=== PATIENT | male | born 1985 | race Caucasian/White ===

== ENCOUNTER → 2020-10-29 09:06 | Outpatient (REF) | payer OTHER, SELFPAY ==
--- NOTE | 2020-10-29 09:09 | CA_ITS ---
Acquisition Time: 2020-10-29 10:28:49 Total Exercise Time: 00:10:37 Test Indications: Suspected Angina Medications: NONE Protocol: TATI Max HR: 176 BPM 95% of Pred: 185 BPM Max BP: 140/078 mmHG Max Work Load: 12.8 METS Exercise stress test using Tati protocol, total of 10 min 37 se. METS 12.8 and MHR up to 96%. Pt tolerated well, denies any anginal sx. EKG without any arrhythmias, no ischemic changes. Normotensive response to exercise. Test reviewed with Dr. Raza. Referred By: Alize Gonzalez Overread By: Yue Storey
== END ==
LOC: HO.CARD 09:06
PROVIDERS: PCP Internal Medicine; Visit Provider Internal Medicine
DX: I20.8 Other forms of angina pectoris (principal)
CPT/HCPCS: 93017

== ENCOUNTER 2024-05-23 08:25 | Outpatient (AMB) | payer BC, SELFPAY ==
[2024-05-23 08:36] VITALS: BP 120/80; BMI 31.8
--- NOTE | 2024-05-23 08:36 | MHC.PC.OV ---
Vital Signs 05/23/24 08:36 Height 5 ft 8 in Weight 209 lb BMI 31.8 BP 120/80 Blood Pressure Location Lt brachial Position Sitting Intake Visit Reasons: pe Intake Note: Patient here for a physical exam Real [employer] Closer Required: No Accompanied by: Self / Same As Patient Allergies No Known Allergies Allergy (Verified 05/23/24 08:49) Medication List - Last Reconciled 05/23/24 by Alize Gonzalez MD No Known Home Meds Tobacco use date assessed: 05/23/24 Dental Screening Dental Screen Date: 05/23/24 Did you have a dental visit in the last 12 months?: Yes Did you have a dental problem in the last 6 months where you did not have access to dental care?: No Was dental information given to patient?: Patient has dentist HPI HPI Comments History of Present Illness Details This is a 38-year-old male that comes for his physical exam. Father had colon cancer at 49 years old therefore he will have a colonoscopy next year. No chest pain or shortness on breath. Complains of left knee pain that started few months ago aggravated by activity. Has full active range of motion. [facility] Medical History (Updated 05/23/24 @ 09:01 by Alize Gonzalez MD) Anxiety Angina at rest Obesity Surgical History No pertinent past surgical history Family History (Updated 05/23/24 @ 08:52 by Alize Gonzalez MD) Father Cancer, Onset Age: 49 Mother Hypertension Diabetes Family/Other FH: mental illness Social History Housing: Apartment Alcohol intake: current Alcohol intake frequency: a few times a month Alcohol type: beer Patient Tobacco Use Status: Former Tobacco user Tobacco use type: Cigarette e-Cigarette/Vaping Use: Never Used Second Hand Smoke Exposure: No service: No Current occupational status: employed Current occupational exposures/hazards: No Cognitive needs: No Hearing needs: No Vision needs: No Questionnaire PHQ-9 Over the last 2 weeks, how often have you been bothered by any of the following problems? 1. Little interest or pleasure in doing things: not at all 2. Feeling down, depressed, or hopeless: not at all 3. Trouble falling or staying asleep, or sleeping too much: not at all 4. Feeling tired or having little energy: not at all 5. Poor appetite or overeating: not at all 6. Feeling bad about yourself - or that you are a failure or have let yourself or your family down: not at all 7. Trouble concentrating on things, such as reading the newspaper or watching television: not at all 8. Moving or speaking so slowly that other people could have noticed. Or the opposite - being so fidgety or restless that you have been moving around a lot more than usual: not at all 9. Thoughts that you would be better off or of hurting yourself in some way: not at all Total score: 0 Depression Screening Interpretation: Negative Depression Screening Done: Yes 57366 - PHQ-9 Billing: Yes Source: Developed by Drs. Troy Munoz, Laura Damon, Supa Vu and colleagues, with an educational kiki from [employer]. Thrive Questionnaire Date Thrive assessed: 05/23/24 I am a: Patient What is your living situation today?: I have a steady place to live Within the past 12 months, did the food you bought not last and you didn't have the money to get more?: Never true Within the past 12 months, did you worry whether your food would run out before you got money to buy more?: Never true Do you have trouble paying for medicines?: No Do you have trouble getting transportation to medical appointments?: No Do you have trouble paying your heating and electricity bill?: No Do you have trouble taking care of your child, family member or friend?: No Do you have trouble with day-to-day activities such as bathing, preparing meals, shopping, managing finances, etc.?: No Are you currently unemployed and looking for a job?: No Are you interested in more education?: No Please select the resources that you would like help with: None Currently or been in a relationship where the following occur: no concerns reported THRIVE Score: 0 AUDIT C Alcohol Use Questionnaire (AUDIT-C) 1. How often do you have a drink containing alcohol?: Monthly or less 2. How many drinks containing alcohol do you have on a typical day when you are drinking?: 1 or 2 3. How often do you have six or more drinks on one occasion?: Never Total Score: 1 Score Reviewed/Action Taken: No COCO-7 AMB Questionnaire COCO-7 Date COCO - 7 assessed: 05/23/24 Feeling nervous, anxious, or on edge: 0 = Not at all Not being able to stop or control worryin = Not at all Worrying too much about different things: 0 = Not at all Trouble relaxin = Not at all Being so restless that it is hard to sit still: 0 = Not at all Becoming easily annoyed or irritable: 0 = Not at all Feeling afraid as if something awful might happen: 0 = Not at all Total COCO-7 score (0-4 normal; 5-9 mild; 10-14 moderate; 15-21 severe): 0 Source: Developed by Drs. Troy Munoz, Laura Damon, Supa Vu and colleagues, with an educational kiki from [employer]. COCO-7 Assessment Billing COCO-7 Assessment Tool: COCO-7 Assessment 67773 Review of Systems Const All systems reviewed & are unremarkable except as noted in HPI and below Card Denies chest pain at rest, Denies chest pain with activity, Denies edema, Denies irregular heart rhythm, Denies claudication, Denies dyspnea, Denies dyspnea on exertion, Denies orthopnea, Denies paroxysmal nocturnal dyspnea and Denies slow heart rate Resp Denies cough, Denies dyspnea and Denies dyspnea on exertion GI Denies abdominal pain, Denies change in bowel habits, Denies excessive flatus, Denies nausea and Denies vomiting Denies urinary hesitancy, Denies urinary incontinence and Denies urinary urgency Musc Denies atrophy, Denies deformity, Reports arthralgias and Denies limited range of motion Physical exam (Primary Care) Vital Signs: Last Vital Signs BP 120/80 05/23/24 08:36 BMI result Body Mass Index 31.8 BMI Assessment/Plan discussion: High BMI High, discussed plan: lifestyle, weight reduction, dietary and physical activity Tobacco/Smoking Status: Tobacco use Status Tobacco use date assessed 05/23/24 05/23/24 08:43 Patient Tobacco Use Status Former Tobacco user 05/23/24 08:43 Tobacco use type Cigarette 05/23/24 08:43 e-Cigarette/Vaping Use Never Used 06/24/24 08:43 PHQ-9: PHQ-9 Score PHQ-9: Total score 0 05/23/24 08:43 Depression Screening Interpretation: Negative Thrive Assessment: Date of Thrive Assessment Date Thrive assessed 05/23/24 05/23/24 08:43 Currently or been in a relationship where the following occur: no concerns reported [facility] Head: Yes normal to inspection, Yes normocephalic and Yes atraumatic Ears: external ears normal Eyes General: appearance normal, both eyes and all related structures Eyelids: Yes eyelids normal Conjunctivae: conjunctivae normal Neck Neck: Yes normal visual inspection and Yes supple Resp Effort & Inspection: normal respiratory effort Auscultation: clear to auscultation bilaterally Cardio Jugular venous distension: no JVD Rate: regular rate Rhythm: regular rhythm Heart sounds: S1 normal heart sound present and S2 normal heart sound present GI Inspection: Yes normal to inspection Palpation (GI): Soft to palpation and nontender Auscultation: normal bowel sounds Skin General skin exam: no rashes or lesions noted Neuro General: no focal motor deficits Extrem General: Yes full ROM Psych Appearance: grossly normal Assessment and Plan Assessment & Plan (1) Physical exam: Code(s): Z00.00 - Encounter for general adult medical examination without abnormal findings Plan: Repeat in a year. (2) Left knee pain: Code(s): M25.562 - Pain in left knee Qualifiers: Chronicity: chronic Qualified Code(s): M25.562 - Pain in left knee; G89.29 - Other chronic pain Plan: X-ray ordered. Referred to Ortho. Orders: Orders Comprehensive [place]. Panel Fast Today Z00.00 - Encounter for general adult medical examination without abnormal findings Lipid Panel Today Z00.00 - Encounter for general adult medical examination without abnormal findings XR knee LT 2V Today M25.562 - Pain in left knee Referrals Orthopedics Referral M25.562 - Pain in left knee Coding Level of Care Code Est Pt Level 3 (72682) Est Pt Prev Care 18-39y(23139) Diagnoses Physical exam Z00.00 Chronic pain of left knee M25.562; G89.29 Chronicity: chronic Additional Codes COCO-7 Assessment Billing - COCO-7 Assessment Tool: COCO-7 Assessment 48359 ([id number]) Time Spent (min) 33
== END 2024-05-23 09:00 | disposition home or self-care (01) ==
PROVIDERS: PCP Internal Medicine; Visit Provider Internal Medicine
DX: Z00.00 Encounter for general adult medical examination without abnormal findings (principal); M25.562 Pain in left knee; G89.29 Other chronic pain
CPT/HCPCS: 99213; 99395

== ENCOUNTER 2024-05-23 09:04 | Outpatient (REF) | payer BC, SELFPAY ==
--- NOTE | ~2024-05-23 | XR_ITS ---
EXAMINATION: XR KNEE, LEFT CLINICAL INFORMATION: Reason for Exam M25.562 - Pain in left knee COMPARISON: None TECHNIQUE: 2 views of the knee FINDINGS: No acute fracture or dislocation. Mild degenerative changes of the knee with quadriceps tendon enthesopathy. Trace suprapatellar joint effusion. Soft tissues are unremarkable. XR/XR knee LT 2V IMPRESSION: * No acute osseous abnormality. * Mild degenerative changes of the knee. Trace suprapatellar joint effusion.
[2024-05-23 10:03] LABS: Alanine Aminotransferase 25 U/L (0-40); Albumin Level 4.4 g/dL (3.5-5.0); Alkaline Phosphatase 57 U/L (39-117); Anion Gap 14 (12-20); Aspartate Amino Transferase 20 U/L (5-37); Bilirubin Total 0.3 mg/dL (0.0-1.0); Blood Urea Nitrogen 13 mg/dL (9-16); Calcium 9.3 mg/dL (8.4-10.2); Carbon Dioxide 28 mmol/L (22-29); Chloride 104 mmol/L (96-108); Cholesterol 165 mg/dL (<200); Estimated Glomerular Filt Rate > 60; Glucose Fasting 97 mg/dL (60-99); HDL Cholesterol 57 mg/dL (>40); LDL Cholesterol Calculated 94 mg/dL (<100); Potassium 4.3 mmol/L (3.3-5.1); Sodium 142 mmol/L (135-145); Total Protein 7.3 g/dL (6.5-8.0); Triglycerides 72 mg/dL (<150)
== END 2024-05-23 09:05 | disposition home or self-care (01) ==
LOC: HO.XRAY 09:04
PROVIDERS: PCP Internal Medicine; Visit Provider Internal Medicine
DX: Z00.00 Encounter for general adult medical examination without abnormal findings (principal); M25.562 Pain in left knee
CPT/HCPCS: 36415; 73560; 80053; 80061

== ENCOUNTER 2025-05-29 08:37 | Outpatient (AMB) | payer BC, SELFPAY ==
--- NOTE | 2025-05-29 08:40 | MHC.PC.OV ---
Vital Signs 05/29/25 08:42 Height 5 ft 8 in Weight 213 lb BMI 32.4 BP 128/80 Blood Pressure Location Lt brachial Position Sitting Intake Visit Reasons: annual exam Intake Note: Patient here for a physical exam [place] Folder Required: No Accompanied by: Self / Same As Patient Allergies No Known Allergies Allergy (Verified 05/29/25 08:52) Medication List - Last Reconciled 05/29/25 by Alize Gonzalez MD No Known Home Meds Tobacco use date assessed: 05/29/25 Dental Screening Dental Screen Date: 05/29/25 Did you have a dental visit in the last 12 months?: Yes Did you have a dental problem in the last 6 months where you did not have access to dental care?: No Was dental information given to patient?: Patient has dentist HPI HPI Comments History of Present Illness Details The patient is a 39-year-old male presenting for an annual physical examination and preventative care. The patient reports experiencing gastritis, characterized by discomfort when not eating, which sometimes feels like a dull ache. He mentions that the symptoms are alleviated by medication, which he uses only when necessary, particularly when consuming stronger foods. The patient has a family history of diabetes and hypertension, as his mother is affected by these conditions. He has a history of smoking but has since quit and reports occasional alcohol consumption, particularly on weekends, where he drinks more than three to four beers. - Tetanus vaccination discussed and planned for administration - Referral to gastroenterology for further evaluation of gastritis, including potential endoscopy [facility] Medical History (Updated 05/29/25 @ 09:02 by Alize Gonzalez MD) Anxiety Angina at rest Obesity Surgical History No pertinent past surgical history Family History (Updated 05/29/25 @ 08:56 by Alize Gonzalez MD) Father Cancer, Onset Age: 45 Mother Hypertension Diabetes Family/Other FH: mental illness Social History Housing: Apartment Alcohol intake: current Alcohol intake frequency: a few times a month Alcohol type: beer Patient Tobacco Use Status: Former Tobacco user Tobacco use type: Cigarette e-Cigarette/Vaping Use: Never Used Second Hand Smoke Exposure: No service: No Current occupational status: employed Current occupational exposures/hazards: No Cognitive needs: No Hearing needs: No Vision needs: No Questionnaire PHQ-9 Over the last 2 weeks, how often have you been bothered by any of the following problems? 1. Little interest or pleasure in doing things: not at all 2. Feeling down, depressed, or hopeless: not at all 3. Trouble falling or staying asleep, or sleeping too much: not at all 4. Feeling tired or having little energy: several days 5. Poor appetite or overeating: several days 6. Feeling bad about yourself - or that you are a failure or have let yourself or your family down: not at all 7. Trouble concentrating on things, such as reading the newspaper or watching television: not at all 8. Moving or speaking so slowly that other people could have noticed. Or the opposite - being so fidgety or restless that you have been moving around a lot more than usual: not at all 9. Thoughts that you would be better off or of hurting yourself in some way: not at all Total score: 2 Depression Screening Interpretation: Negative Depression Screening Done: Yes 79170 - PHQ-9 Billing: Yes Source: Developed by Drs. Troy Munoz, Laura Damon, Supa Vu and colleagues, with an educational kiki from [employer]. Thrive Questionnaire Date Thrive assessed: 05/22/25 I am a: Patient What is your living situation today?: I have a steady place to live Within the past 12 months, did the food you bought not last and you didn't have the money to get more?: Often true Within the past 12 months, did you worry whether your food would run out before you got money to buy more?: Sometimes True Do you have trouble paying for medicines?: Yes Do you have trouble getting transportation to medical appointments?: No Do you have trouble paying your heating and electricity bill?: Yes Do you have trouble taking care of your child, family member or friend?: No Do you have trouble with day-to-day activities such as bathing, preparing meals, shopping, managing finances, etc.?: No Are you currently unemployed and looking for a job?: No Are you interested in more education?: Yes Please select the resources that you would like help with: None Currently or been in a relationship where the following occur: No concerns reported THRIVE Score: 3 AUDIT C Alcohol Use Questionnaire (AUDIT-C) 1. How often do you have a drink containing alcohol?: 2-4 times a month 2. How many drinks containing alcohol do you have on a typical day when you are drinking?: 3 or 4 3. How often do you have six or more drinks on one occasion?: Monthly Total Score: 5 Score Reviewed/Action Taken: Yes COCO-7 AMB Questionnaire COCO-7 Date COCO - 7 assessed: 05/29/25 Feeling nervous, anxious, or on edge: 0 = Not at all Not being able to stop or control worryin = Not at all Worrying too much about different things: 1 = Several days Trouble relaxin = Several days Being so restless that it is hard to sit still: 0 = Not at all Becoming easily annoyed or irritable: 1 = Several days Feeling afraid as if something awful might happen: 1 = Several days Total COCO-7 score (0-4 normal; 5-9 mild; 10-14 moderate; 15-21 severe): 4 Source: Developed by Drs. Troy Munoz, Laura Damon, Supa Vu and colleagues, with an educational kiki from [employer]. COCO-7 Assessment Billing COCO-7 Assessment Tool: COCO-7 Assessment 47103 Review of Systems Const All systems reviewed & are unremarkable except as noted in HPI and below Card Denies chest pain at rest, Denies chest pain with activity, Denies edema, Denies irregular heart rhythm, Denies claudication, Denies dyspnea, Denies dyspnea on exertion, Denies orthopnea, Denies paroxysmal nocturnal dyspnea and Denies slow heart rate Resp Denies cough, Denies dyspnea and Denies dyspnea on exertion GI Denies abdominal pain, Denies change in bowel habits, Denies excessive flatus, Denies nausea and Denies vomiting Denies urinary hesitancy, Denies urinary incontinence and Denies urinary urgency Musc Denies abnormal gait, Denies atrophy, Denies deformity and Denies limited range of motion Skin/Breast Denies bleeding lesions, Denies changing lesions and Denies rash Neuro Denies abnormal gait, Denies behavioral changes and Denies lack of coordination Psych Denies behavioral changes Physical exam (Primary Care) Vital Signs: Last Vital Signs BP 128/80 05/29/25 08:42 BMI result Body Mass Index 32.4 Tobacco/Smoking Status: Tobacco use Status Tobacco use date assessed 05/29/25 05/29/25 08:49 Patient Tobacco Use Status Former Tobacco user 05/29/25 08:47 Tobacco use type Cigarette 05/29/25 08:47 e-Cigarette/Vaping Use Never Used 05/29/25 08:47 PHQ-9: PHQ-9 Score PHQ-9: Total score 2 05/29/25 08:58 Depression Screening Interpretation: Negative Thrive Assessment: Date of Thrive Assessment Date Thrive assessed 05/22/25 05/29/25 08:47 Currently or been in a relationship where the following occur: No concerns reported [facility] Head: Yes normal to inspection, Yes normocephalic and Yes atraumatic Ears: external ears normal Eyes General: appearance normal, both eyes and all related structures Eyelids: Yes eyelids normal Conjunctivae: conjunctivae normal Neck Neck: Yes normal visual inspection and Yes supple Resp Effort & Inspection: normal respiratory effort Auscultation: clear to auscultation bilaterally Cardio Jugular venous distension: no JVD Rate: regular rate Rhythm: regular rhythm Heart sounds: S1 normal heart sound present and S2 normal heart sound present GI Inspection: Yes normal to inspection Palpation (GI): Soft to palpation and nontender Auscultation: normal bowel sounds Skin General skin exam: no rashes or lesions noted Neuro General: no focal motor deficits Extrem General: Yes full ROM Psych Appearance: grossly normal Immunizations Boostrix Tdap 2.5 Lf unit-8 mcg-5 Lf/0.5 mL intramuscular syringe Performing Provider: Alize Gonzalez MD [facility] [place] [facility] [place] [facility] Administered by: MARIO Garrison on 05/29/25 09:05 Dose Route Admin Location Dispensed Lot Number Expiration Date [facility] Rn Post Partum 0.5 mL IM Right Deltoid 0.5 mL [id number] 07/28/27 [id number] [employer] Total Dispensed Waste 0.5 mL 0 % VIS Given Date VIS Provided VIS Publication Date 05/29/25 Single Vaccine 24 Eligibility Eligibility Date Funding Source Not [facility] Eligible 05/29/25 Private Coding Level of Care Code Est Pt Level 3 (41474) Est Pt Prev Care 18-39y(43908) Diagnoses Physical exam Z00.00 Family history of colon cancer in father Z80.0 Chronic GERD K21.9 Additional Codes COCO-7 Assessment Billing - COCO-7 Assessment Tool: COCO-7 Assessment 90879 ([id number]) PHQ-9 - 26817 - PHQ-9 Billing: Yes ([id number]) Time Spent (min) 35 Assessment & Plan Assessment & Plan (1) Physical exam: Code(s): Z00.00 - Encounter for general adult medical examination without abnormal findings Category: Medical (2) Family history of colon cancer in father: Code(s): Z80.0 - Family history of malignant neoplasm of digestive organs Category: Medical (3) Chronic GERD: Code(s): K21.9 - Gastro-esophageal reflux disease without esophagitis Category: Medical Plan The patient will receive a tetanus vaccination as part of his preventative care measures during this visit. For the management of gastritis, the patient is advised to continue using medication as needed, particularly before consuming foods known to exacerbate symptoms. A referral to gastroenterology is planned for further evaluation, including the possibility of an endoscopy to assess the gastrointestinal tract more thoroughly. Patient was informed and verbally consented to the use of an ambient scribe for clinic note documentation during this visit. During the visit, I discussed with the patient the importance of receiving a tetanus vaccination, which is due as part of his preventative care. We also talked about his gastritis symptoms and the use of medication to manage these symptoms effectively. I recommended a referral to gastroenterology for further evaluation, including the potential need for an endoscopy to better understand his gastrointestinal issues. Orders: Orders Lipid Panel Today Z00.00 - Encounter for general adult medical examination without abnormal findings TDaP Immunization Today Z23 - Encounter for immunization Comprehensive [place]. Panel Fast Today Z00.00 - Encounter for general adult medical examination without abnormal findings Referrals Gastroenterology Referral K21.9 - Gastro-esophageal reflux disease without esophagitis, Z80.0 - Family history of malignant neoplasm of digestive organs Medications: New omeprazole 20 mg PO DAILY 90 caps 1RF 90 days K21.9 - Gastro-esophageal reflux disease without esophagitis Patient Instructions: - Receive tetanus vaccination today. - Use medication for gastritis as needed, especially before eating foods that may cause discomfort. - Follow up with gastroenterology for further evaluation and possible endoscopy.
[2025-05-29 08:42] VITALS: BP 128/80; BMI 32.4
--- OUTSIDE RECORDS SUMMARY | 2025-05-29 08:48 | XMS_ITS | Clinical Summary ---
Author Organization [facility] ity Address [address] [place] [address] Care Team Providers Care Photographer'S Model Name Role Phone Vika Suazo MD Primary Care Provider Surgical History Surgery Date Site/Laterality Comments OTHER SURGICAL HISTORY PROCEDURE: DENIES PREVIOUS SURGERY Medical History Medical History Date Comments Historical Medical DX 09/14/2014 DX:NO ACTI VE MEDICAL PROBLEMS Family History Medical History Relation Name Comments Colon cancer Father Hypertension Mother diabetic Breast cancer Paternal Grandmother Relation Name Status Comments Father Mother Paternal Grandmother Social History Tobacco Use Types Packs/Day Years Used Date Smoking Tobacco: Former Cigarettes Q uit: 06/30/2014 Smokeless Tobacco: Former Quit: 06/30/2014 Alcohol Use Standard Drinks/Week Comments Yes 0 (1 standard drink = 0.6 oz pur e alcohol) Sex and Gender Information Value Date Recorded Sex Assigned at Not on file Legal Sex Male 3:59 AM EST Gender Identity Not on file Sexual Orientation Not on file Obstetrics History Plan of Treatment Health Maintenance Due Date Last Done Comments DTaP,Tdap,and Td Vaccines (1 - Tdap) 2004 Hepatitis B Vaccines (1 of 3 - 19+ 3-dose series) 2004 COVID-19 Vaccine ( - 2023-2 5 season) 2024 Influenza Vaccine (Season Ended) 2025 09/14/20 14 HIB Vaccines Aged Out No longer eligi ble based on patient's age to complete this topic HPV Vaccines Aged Out No longer eligi ble based on patient's age to complete this topic Hepatitis A Vaccines Aged Out No long er eligible based on patient's age to complete this topic IPV Vaccines Aged Out No longer eligi ble based on patient's age to complete this topic MMR Vaccines Aged Out No longer eligi ble based on patient's age to complete this topic Meningococcal ACWY Vaccine Aged Out N o longer eligible based on patient's age to complete this topic Meningococcal B Vaccine Aged Out No l onger eligible based on patient's age to complete this topic Pneumococcal Vaccine: Pediat rics (0 to 5 Years) and At-Risk Patients (6 to 64 Years) Aged Out No longer eligi ble based on patient's age to complete this topic RSV Immunization Patients Un darren 20 months Aged Out No longer eligible b ased on patient's age to complete this topic Varicella Vaccines Aged Out No longer eligible based on patient's age to complete this topic Care Teams Photographer'S Model Relationship Specialty Start Date End Date Vika Suazo MD [address] [place] [id number] PCP - General Internal Medicine 08/15/16
== END 2025-05-29 09:03 | disposition home or self-care (01) ==
LOC: HO.HMCH 08:38
PROVIDERS: PCP Internal Medicine; Visit Provider Internal Medicine
DX: Z00.00 Encounter for general adult medical examination without abnormal findings (principal); K21.9 Gastro-esophageal reflux disease without esophagitis; Z80.0 Family history of malignant neoplasm of digestive organs; Z23 Encounter for immunization

== ENCOUNTER → 2025-05-29 08:37 | Outpatient (BNVA) | payer BC, SELFPAY | PROVIDERS: PCP Internal Medicine; Visit Provider Internal Medicine | DX: Z00.00 Encounter for general adult medical examination without abnormal findings (principal); K21.9 Gastro-esophageal reflux disease without esophagitis; E11.9 Type 2 diabetes mellitus without complications; I10 Essential (primary) hypertension; Z23 Encounter for immunization; Z80.0 Family history of malignant neoplasm of digestive organs | CPT/HCPCS: 90471; 90715; 96127 ==

== ENCOUNTER 2025-10-06 14:02 | Outpatient (AMB) | payer BC, SELFPAY ==
--- NOTE | 2025-10-06 14:07 | A.OFFVIS_ITS ---
Vital Signs 10/06/25 14:08 Height 5 ft 8 in Weight 213 lb BMI 32.4 BP 114/60 Blood Pressure Location Rt brachial Position Sitting Pulse 96 Pulse Source Pulse Oximeter Pulse Oximetry (%) 99 Oxygen Delivery Method Room Air Intake Visit Reasons: gerd, colo screen Intake Note: Patient new consult for pre Colonoscopy and GERD. Patient cc: C.O. GERD, excessive gas, and epigastric pain. Pt states that he had previously been given an Rx for PPI but never picked it up. Pt has not had anything to eat or drink since ~ 12 PM. Family hx of CRC (Father). Jigman Required: Yes Jigman Services: Jigman Offered & Declined Accompanied by: Significant Other Allergies No Known Allergies Allergy (Verified 10/06/25 14:08) Medication List - Last Reconciled 10/06/25 by Lisa Mejia CNP No Known Home Meds HPI HPI gerd, colo screen: Details: Patient is a 40-year-old male with PMH of obesity, anxiety. Referred by PCP for further evaluation GERD and family history of colon cancer. Patient is accompanied by partner who is translating during this visit. Reports first-degree relative (father) diagnosed with colon cancer at age 47. Patient endorses a 2?3 year history of sensation of food ?getting stuck? and occasional burning discomfort in the epigastric/esophageal region, primarily triggered by coffee, lasting up to 2 hours. Reports intermittent regurgitation and frequent burping, particularly after meals and when eating quickly. Additionally, notes difficulty swallowing, more pronounced with solids, present for approximately one year, and exacerbated by specific foods such as cheese (notably, cheese pizza can induce transient choking episodes relieved by drinking water). Past use of famotidine (helpful). Reports constipation characterized by variable stool consistency (hard or soft), bowel movements 1?2?/day, and occasional incomplete evacuation; hard stools more likely when consuming less water or more bread/carbs and partially relieved by increasing water intake. Relevant comorbidities include dental issues limiting fiber intake. No reported medications currently. Patient denies: fever/chills, n/v, appetite changes, unintentional wt loss, ab pain or melena/hematochezia. Social hx: -ETOH use, 5 cups whiskey -denies recreational drug use - former smoker, cessation 3 years - family hx as below -denies personal hx of CA -denies significant cardiopulmonary history -tolerated anesthesia in the past without difficulty. [facility] Medical History (Updated 10/06/25 @ 14:49 by Lisa Mejia CNP) Dysphagia Constipation Colon cancer screening Anxiety Angina at rest Obesity Surgical History No pertinent past surgical history Family History Father Cancer, Onset Age: 45 Mother Hypertension Diabetes Family/Other FH: mental illness Social History Housing: Apartment Alcohol intake: current Alcohol intake frequency: a few times a month Alcohol type: beer Patient Tobacco Use Status: Former Tobacco user Tobacco use type: Cigarette e-Cigarette/Vaping Use: Never Used Second Hand Smoke Exposure: No service: No Current occupational status: employed Current occupational exposures/hazards: No Cognitive needs: No Hearing needs: No Vision needs: No Review of Systems Const Reports as per HPI ENT Reports as per HPI Card Reports as per HPI Resp Reports as per HPI GI Reports as per HPI Reports as per HPI Physical Exam Vital Signs: Last Vital Signs Pulse 96 10/06/25 14:08 BP 114/60 10/06/25 14:08 Pulse Ox 99 10/06/25 14:08 Oxygen Delivery Method Room Air 10/06/25 14:08 BMI result Body Mass Index 32.4 Const General: healthy appearing, no acute distress and well developed Nutritional Appearance: average body habitus Orientation/consciousness: patient oriented x3 HEENT Head: Yes normal to inspection, Yes normocephalic and Yes atraumatic Face and sinus: Yes normal facial exam Throat: Yes posterior oropharynx normal Eyes General: appearance normal, both eyes and all related structures Neck Neck: Yes normal visual inspection Lymphatic: no lymphadenopathy noted Resp Effort & Inspection: normal respiratory effort, able to speak in complete sentences, no tracheal deviation and symmetric chest movement Cardio Jugular venous distension: no JVD GI Inspection: Yes normal to inspection, No distended and Yes obesity Palpation (GI): Soft to palpation, not firm, nontender and No hepatosplenomegaly present Auscultation: normal bowel sounds Neuro General: patient oriented x3 Gait exam (Neuro): Normal gait present Psych Appearance: grossly normal Mental Status: mental status grossly normal Speech and movement: Normal speech and movement present Affect: normal affect Attitude: cooperative Thought process: Normal thought process present Thought content: Normal thought content present Insight: Good insight present (Psych) Judgement: Good judgement present (Psych) Assessment & Plan Assessment & Plan (1) Family history of colon cancer in father: Code(s): Z80.0 - Family history of malignant neoplasm of digestive organs Category: Medical Plan: Father with colon CA at 47?patient qualifies for early screening Additional Testing: - Colonoscopy scheduled (with EGD); pre-procedure bowel prep instructions provided Medication Management: - Colonoscopy prep regimen, including PEG 4L spilt + 2 laxative tabs QHS five days pre-procedure Lifestyle Recommendations: - NPO instructions for procedure; review prep packet and instructions; avoid red/blue/purple liquids pre-procedure Follow-Up: - Await scheduling for colonoscopy/EGD; results reviewed at follow-up (2) Chronic GERD: Code(s): K21.9 - Gastro-esophageal reflux disease without esophagitis Category: Medical Plan: Chronic reflux symptoms, regurgitation, dysphagia (solids), sensation of food ?sticking,? increased with certain foods, partial response to famotidine. Additional Testing: - Upper endoscopy (EGD) ordered, to be performed with colonoscopy; assess for esophagitis, stricture, mass, EoE - Barium swallow (esophagram) for detailed dysphagia workup - H.pylori testing (spoke after visit, pt agreeable to stool testing) Medication Management: - Rx famotidine (as previously helpful) Lifestyle Recommendations: - Avoid alcohol or minimize - Eat slowly; avoid overeating and laying down postprandially - Optimize hydration Follow-Up: - Reassess post-procedures; office follow-up after colonoscopy/EGD (3) Constipation: Code(s): K59.00 - Constipation, unspecified Category: Medical Qualifiers: Constipation type: unspecified constipation type Qualified Code(s): K59.00 - Constipation, unspecified Plan: Hard/inconsistent stools, incomplete evacuation, variable frequency, dietary/l ifestyle factors, no alarm symptoms. Additional Testing: - Routine labs: CBC, renal/liver panel, TSH to r/o underlying d/o Medication Management: - Begin OTC stool softener daily; add polyethylene glycol (Miralax) prn if inadequate response Lifestyle Recommendations: - Increase dietary fiber (fruits/vegetables, beans, lentils, nuts) as tolerated with dental limitations - Maintain/increase hydration; avoid excessive bread/carbs as triggers identified Follow-Up: - Monitor response to dietary/medication changes; reassess at next GI clinic visit or sooner if alarm signs Plan Follow-up after endoscopy or sooner as needed Time: I spent a total of 35 minutes on the date of encounter which includes: Preparing to see the patient (reviewed previous documentation, test results and medical history) Performing a medically appropriate exam and/or evaluation Ordering medications, tests, and procedures Documenting clinical information in the health record Orders: Orders Comprehensive [place]. Panel Fast Today K59.00 - Constipation, unspecified TSH reflex Free T4 Today K59.00 - Constipation, unspecified [place] barium swallow Today K21.9 - Gastro-esophageal reflux disease without esophagitis, R13.10 - Dysphagia, unspecified H pylori Ag Stool Today K21.9 - Gastro-esophageal reflux disease without esophagitis Lipase Today K59.00 - Constipation, unspecified Complete Blood Count Auto Diff Today K59.00 - Constipation, unspecified Referrals GI Procedure Notification K21.9 - Gastro-esophageal reflux disease without esophagitis, Z12.11 - Encounter for screening for malignant neoplasm of colon, Z80.0 - Family history of malignant neoplasm of digestive organs Medications: New docusate sodium Take one tablet at bedtime 100 mg PO BEDTIME 90 caps 1RF constipation polyethylene glycol 3350 (Miralax) Take 17G (one cap full) daily with 8oz of water 17 grams PO DAILY 510 grams 2RF constipation 30 days bisacodyl Take per colonoscopy instructions 20 mg (4 x 5 mg) PO ONCE 4 tabs 0RF bisacodyl Take two tablets at bedtime starting five days before colonoscopy 10 mg (2 x 5 mg) PO BEDTIME 10 tabs 0RF 5 days simethicone (Gas Relief (simethicone)) per colonoscopy prep instructions 500 mg (4 x 125 mg) PO ONCE 4 caps 0RF abdominal distention peg 3350-electrolytes [id number] -5.86 gram until fecal effluent is clear 240 mL PO ONCE 4,000 mL 0RF famotidine Take one tablet daily at bedtime 20 mg PO DAILY 90 tabs 1RF GERD Coding Level of Care Code New Pt New Pt Level 3 (03105) Patient Type New Diagnoses Family history of colon cancer in father Z80.0 Chronic GERD K21.9 Constipation, unspecified constipation type K59.00 Constipation type: unspecified constipation type
[2025-10-06 14:08] VITALS: BP 114/60; PULSE 96; O2SAT 99; BMI 32.4
--- OUTSIDE RECORDS SUMMARY | 2025-10-06 15:51 | XMS_ITS | Clinical Summary ---
Author Organization [facility] ity Address [address] [place] [address] Care Team Providers Care Hide Salter Name Role Phone Vika Suaoz MD Primary Care Provider Surgical History Surgery [...] of 3 - 19+ 3-dose series) 2004 HPV Vaccines (1 - 3-dose SCD M series) 2012 Depression Screening 11/30/2024 COVID-19 Vaccine ( - 2023-2 5 season) 2025 Influenza Vaccine (#1) 2025 09/14/2014 RSV Immunization Adult Patie nts (1 - 1-dose 75+ series) 2060 HIB Vaccines Aged Out No longer eligi [...] 5 Years) and At-Risk Patients (6 to 49 Years) Aged Out No longer eligi ble based on patient's age to complete this topic RSV Immunization Patients Un darren 20 months Aged Out No longer eligible b ased on patient's age to complete this topic Varicella Vaccines Aged Out No longer eligible based on patient's age to complete this topic Care Teams Hide Salter Relationship Specialty Start Date End Date Vika Suazo MD [address] [place] [address] PCP - General Internal Medicine 08/15/16
== END 2025-10-06 14:55 | disposition home or self-care (01) ==
PROVIDERS: PCP Internal Medicine; Visit Provider Nurse Practitioner Family
DX: Z80.0 Family history of malignant neoplasm of digestive organs (principal); K21.9 Gastro-esophageal reflux disease without esophagitis; K59.00 Constipation, unspecified
CPT/HCPCS: 99203

== ENCOUNTER 2025-10-13 08:08 | Outpatient (REF) | payer BC, SELFPAY ==
[2025-10-13 08:16] LABS: MANUAL DIFF FLAG NO
[2025-10-13 08:28] LABS: Hematocrit 45.6 % (42.0-52.0); Hemoglobin 15.3 g/dl (14.0-18.0); Imm Gran Abs Auto 0.01 X10*3/uL (0.00-0.03); Imm Gran Pct Auto 0.2 % (0.0-0.4); Lymphocytes Absolute Auto 1.6 X10*3/uL (1.2-4.9); Mean Corpuscular HGB Conc 33.6 g/dl (31.0-36.0); Mean Corpuscular Hemoglobin 29.4 pg (27.0-33.0); Mean Corpuscular Volume 87.7 fL (80.0-98.0); NRBC Abs Auto 0.000 X10*3/uL (0.0-0.012); NRBC Pct Auto 0.0 /100WBC (0.0-0.2); Platelet Count 289 X10*3/uL (160-400); Red Blood Count 5.20 X10*6/uL (4.60-5.80); White Blood Count 4.9 X10*3/uL (4.8-10.8)
[2025-10-13 09:07] LABS: Cholesterol 176 mg/dL (<200); HDL Cholesterol 52 mg/dL (>40); Lipase 65 U/L (8-78); Triglycerides 67 mg/dL (<150)
[2025-10-13 09:11] LABS: Alanine Aminotransferase 37 U/L (0-40); Albumin Level 4.6 g/dL (3.5-5.0); Alkaline Phosphatase 68 U/L (39-117); Anion Gap 12 (12-20); Aspartate Amino Transferase 24 U/L (5-37); Blood Urea Nitrogen 13 mg/dL (9-16); Calcium 9.5 mg/dL (8.4-10.2); Carbon Dioxide 26 mmol/L (22-29); Chloride 109 mmol/L (96-108); Estimated Glomerular Filt Rate > 60; Potassium 4.4 mmol/L (3.3-5.1); Sodium 143 mmol/L (135-145); Total Protein 7.5 g/dL (6.5-8.0)
== END 2025-10-13 08:09 | disposition home or self-care (01) ==
LOC: HO.LAB 08:08
PROVIDERS: PCP Internal Medicine; Visit Provider Nurse Practitioner Family
DX: Z00.00 Encounter for general adult medical examination without abnormal findings (principal); Z13.6 Encounter for screening for cardiovascular disorders; K59.00 Constipation, unspecified
CPT/HCPCS: 36415; 80053; 80061; 83690; 84443; 85025

== ENCOUNTER 2025-10-14 09:43 | Outpatient (REF) | payer BC, SELFPAY | END 2025-10-14 09:44 | disposition home or self-care (01) | LOC: HO.LNP 09:43 | PROVIDERS: Visit Provider Nurse Practitioner Family | DX: K59.00 Constipation, unspecified (principal) | CPT/HCPCS: 87338 ==